=== PATIENT | male | born 1960 | race Caucasian/White ===

== ENCOUNTER 2019-11-04 08:09 | Outpatient (CLI) | payer OTHER ==
[2019-11-04 08:47] VITALS: BP 126/80
--- NOTE | 2019-11-04 08:47 | SLEEP CARE CONSULTATION ---
Information from patient questionnaire entered by Leatha Canales. I have reviewed and concur with the information entered by Leatha Canales. This document represents the service I personally performed and the decisions made by me, Delia Trinh ARNP. History of Present Illness Service Date and Time: 11/04/2019 0800 Reason for Visit: New patient Chief Complaint: reports: Unrefreshed sleep, Snoring, Excessive daytime sleepiness, Observed pauses in breathing (late ), Fatigue, Frequent awakenings at night (very restless sleep). denies: Insomnia Duration of Symptoms: 20 years Usual bedtime: [id number] Time it takes to fall asleep: 5-10 minutes Snores at night: Yes (terribly) Observed to quit breathing while asleep: Yes Sleeps alone due to snoring: Yes Number of times waking at night: several Reasons for waking at night: reports: Snoring, Bathroom, Other (I have never slept through the night, very dry throat that hurts). denies: Choking, Gasping for air Toss, Turn, or Twitch while sleeping: Yes Recalls having dreams: Yes Usually gets out of bed at: [id number] Feels refreshed in the morning: No Morning headache: No Sleepy or fatigued during the day: Yes Ever fallen asleep while driving: No (drowsy driving) Takes day naps: No Dreams during day naps: No Prior sleep studies: No Additional HPI information: Patient has snored loudly and is always tired for the last 40 years according to late and his children. He has talked for years to friends who use CPAP and recommended he get checked. He is so restless at night that he bothers his son who sleeps in the room next to his room. He has had many reasons for not addressing this such as job stresses, always being "too busy", in 2009 and raising 3 kids alone. He had a total shoulder 2012 and total knee in 2016. He has had PCPs recommend that he come in for studies and finally has come in. - Parasomnia Symptoms Ever been unable to move upon waking from sleep: No Walks in sleep: No Talks in sleep: Yes Ever acted out dreams in sleep: No Ever felt weak in the knees when startled or emotional: No Bothered by creepy, crawly, restless sensations in legs: No Problems with memory or concentration: No Subjective Initial [place] Sleepiness Scale score: 17 Past Medical History Past Medical History: reports: Anxiety (natural anxiety), Other (high cholesterol). 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 Patient is / and lives in [place]. Have you smoked in the past 12 months: No Alcohol use: Yes Alcohol amount and frequency: 2/day Caffeine use: Yes Caffeine amount and frequency: 2 cup coffee/day Family History Family history of sleep disordered breathing: Yes Family Hx Sleep Apnea: Father: Snoring, Sibling: Snoring Allergies and Home Medications Drug allergies reviewed: Yes (NKDA) Home medication list reviewed: Yes (Lipitor daily, motrin prn, concerta occasionally/prn) Review of Systems Weight loss over past 5 years: 10 Cardiovascular: denies: high blood pressure, palpitations, chest pain, irregular heart rate or pulse, leg or foot swelling, have to sleep sitting up Respiratory: denies: shortness of breath, chronic cough Gastrointestinal: reports: heartburn (rarely). denies: difficulty swallowing Urinary: denies: impotence Neurological: denies: headaches, seizure, head trauma, disorientation, gait or balance problems Psychiatric: reports: anxiety. denies: depression, mood disorder, claustrophobia Ear/Nose/Throat: reports: dry mouth/throat (from snoring; mostly in morning, uses liquid which helps), wisdom teeth removed. denies: nasal congestion, sinus problems, nose bleeds, hoarseness, injury to nose, tonsillectomy Endocrine: denies: thyroid disease, sluggishness, too hot or cold, excessive thirst, increased appetite Musculoskeletal: reports: joint pain, other (He had a total shoulder 2011 and total knee in 2016.). denies: joint swelling, muscle pain or cramping Immunologic: denies: allergies to food or environment Physical Exam Blood Pressure: 126/80 Cuff size: long Heart Rate: 65 O2 Saturation: 97 Height: 5 ft 11 in Weight: 198 lb 3.2 oz Body Mass Index: 27.6 BMI Classification: Overweight Neck circumference: 15.75 (inches) HEENT: No craniofacial malformation Nostrils: patent to airflow Turbinates: normal Septum: midline Mouth and throat: normal Soft palate: normal Hard palate: normal Uvula: normal Uvula visualization: 50% Mallampati Class II Tongue: normal in size Tonsils: small Chin and jaw: normal size and position Neck: normal w/o lymphadenopathy or thyromegaly Heart: regular rate and rhythm Lungs: clear bilaterally Impression and Plan 1. Suspected Obstructive Sleep Apnea-Hypopnea Syndrome, as suggested by a history of loud and irregular snoring, observed cessation of breath while asleep, frequent awakening during the night, unrefreshed sleep, and excessive daytime sleepiness. Narrow oropharynx and obesity are common predisposing fact ors for obstructive sleep apnea-hypopnea syndrome. I recommend proceeding to polysomnography to confirm the diagnosis and to assess severity. I informed the patient of what the sleep studies involve and after some discussion, obtained agreement to proceed. The pathophysiology of obstructive sleep apnea-hypopnea syndrome was discussed with the patient and health risks of cardiovascular and cerebrovascular disease if not treated. AAS brochure for obstructive sleep apnea-hypopnea syndrome given and reviewed. Risks of drowsy driving discussed in detail and patient advised to avoid long distance driving and to pan puller at the first sign of drowsiness. Patient agreed to plan. AAS drowsy driving brochure given. * Schedule polysomnography. * Avoid long distance driving or driving when feeling sleepy. * Avoid alcohol, sedative and muscle relaxant around bedtime. * Attempt to lose weight. * Review instructions provided by trained office staff on how to prepare for the sleep study. * Return for follow-up after sleep study completed. Time Spent with Patient (minutes): 35
== END 2019-11-04 08:10 | disposition home or self-care (01) ==
LOC: SC 08:09
PROVIDERS: ATTEND Nurse Practitioner Family
DX: G47.9 Sleep disorder, unspecified (principal); R06.89 Other abnormalities of breathing; R06.83 Snoring; E66.3 Overweight; Z68.27 Body mass index [BMI] 27.0-27.9, adult; J39.8 Other specified diseases of upper respiratory tract
CPT/HCPCS: 99204; 99212

== ENCOUNTER 2019-11-22 20:34 | Outpatient (CLI) | payer OTHER | END 2019-11-22 20:35 | disposition home or self-care (01) | LOC: SC 20:34 | PROVIDERS: ATTEND Internal Medicine Pulmonary Disease | DX: G47.33 Obstructive sleep apnea (adult) (pediatric) (principal); E66.3 Overweight; Z68.27 Body mass index [BMI] 27.0-27.9, adult | CPT/HCPCS: 95810 ==

== ENCOUNTER 2019-12-01 13:52 | Outpatient (CLI) | payer OTHER ==
--- NOTE | 2019-12-01 16:40 | SLEEP CARE CONSULTATION ---
Information from patient questionnaire entered by Tosha Capone. I have reviewed and concur with the information entered by Tosha Capone. This document represents the service I personally performed and the decisions made by me, Delia Trinh ARNP. History of Present Illness Service Date and Time: 12/01/2019 1352 Initial [place] Sleepiness Scale score: 17 (in 2020) Current [place] Sleepiness Scale score: 15 Additional HPI information: MARSHA FREGOSO returns for follow up and results of the recently performed polysomnography. His study showed that he has mild obstructive sleep apnea with an AHI of 14.6 and a phillip oxygen saturation of 86%. I explained the pathophysiology behind obstructive sleep apnea. We then spent quite a bit of time discussing different treatment options. For mild obstructive sleep apnea, surgery and oral appliance are alternatives to nasal CPAP therapy but in moderate or severe cases, nasal CPAP is the most effective and reliable treatment. Because apnea is primarily in supine position, then positional management therapy could be effective. Methods discussed such as positioning with pillows, using a T-shirt with tennis balls in the back, and shown commercial products that have a pillow format on back to prevent supine sleep. I reviewed the impact of weight changes on sleep apnea and strongly recommended losing weight. After some discussion, the patient opted to go with the nasal CPAP therapy. Nasal autoCPAP set at 4-15 cmH20 will be ordered with rationale explained. A manual titration study will be ordered if unable to find optimal pressure with office adjustments. I explained how CPAP machine works with sample devices Respironics Dreamstation and ResMed [id number] and what to expect when using the machine. Using CPAP every night in order to get used to it was emphasized. Patient advised to put CPAP mask on before getting into bed so as not to fall asleep without CPAP. To assist acclimation to CPAP use, it could also be used for a short time during day while reading or watching TV. The patient was instructed to call the CPAP supplier to discuss any mechanical problem that may occur. If the mask given is uncomfortable or is difficult to keep on through the night even with adjustment, contact the CPAP supplier as many will replace with another mask style if notified before 30 days. If snoring or perceives is not getting enough air or too much air from the machine, notify this office. AAS patient education PAP tips reviewed and given to patient. Patient counseled not drink alcohol less than 4 hours before bedtime as it can increase snoring and apnea. Patient was cautioned about risks of drowsy driving until sleepiness symptoms resolve. Sleep Study - Results Type of Sleep Study: Polysomnography Prior sleep studies: No Polysomnography/Home Sleep Study results: IMPRESSION: The quality of the study is good. The patient had normal sleep efficiency. Except for mild sleep fragmentation, the sleep architecture was normal as well. Respiratory monitoring showed mild obstructive sleep apnea-hypopnea (AHI = 14.6) associated with frequent arousals, oxyhemoglobin desaturation and mild hypoxia (phillip oxygen saturation of 86%). The respiratory events occurred almost exclusively during supine sleep (supine AHI = 17.9; non-supine = 3.30). Snore was loud in intensity. There was no significant periodic leg movement of sleep. Cardiac rhythm was normal sinus rhythm without significant arrhythmia. No abnormal behavior (parasomnia) observed during the night. Allergies and Home Medications Drug allergies reviewed: Yes (NKDA) Home medication list reviewed: Yes (no changes) Review of Systems Review of systems same as previous: Yes (no changes) Physical Exam Heart Rate: 85 O2 Saturation: 96 Height: 5 ft 11 in Weight: 195 lb 9.6 oz Body Mass Index: 27.3 BMI Classification: Overweight Impression and Plan 1. Obstructive Sleep Apnea-Hypopnea Syndrome, mild, with lowest oxygen saturation of 86%. Obviously this is the cause of the patients symptoms of unrefreshed sleep, and excessive daytime sleepiness. Positive pressure therapy could benefit his overall health as well as help him to get restful sleep. As mentioned above, the patient will be started on nasal autoCPAP therapy with pressure set at 4-15 cmH2O. A manual titration study will be completed if unable to find optimal treatment pressure with office adjustments. Compliance guidelines also reviewed. A copy of compliance guidelines will be given for reference at check out. Because the apnea is more severe supine, I instructed to avoid sleeping supine using pillow positioning until able to start CPAP use. * Nasal auto CPAP therapy, pressure at 4-15 cm H2O. * Attempt to lose weight. * Avoid alcohol consumption near bedtime. * Avoid supine sleep until using CPAP. * The patient is again cautioned about driving until sleepiness completely resolves. * Return one month after CPAP obtained. I will assess response to therapy and compliance at that time. Visit Type: In Office Time Spent with Patient (minutes): 15 Provider Statement: I spent 100% of the Face to Face Visit with the patient with greater than 50% spent counseling the patient and coordination of care.
== END 2019-12-01 13:53 | disposition home or self-care (01) ==
LOC: SC 13:52
PROVIDERS: ATTEND Nurse Practitioner Family
DX: G47.33 Obstructive sleep apnea (adult) (pediatric) (principal); E66.3 Overweight; Z68.27 Body mass index [BMI] 27.0-27.9, adult
CPT/HCPCS: 99212; 99213

== ENCOUNTER 2020-01-18 08:10 | Outpatient (CLI) | payer OTHER ==
--- NOTE | 2020-01-18 08:45 | SLEEP CARE CONSULTATION ---
Information from patient questionnaire entered by Sherin Bundy. I have reviewed and concur with the information entered by Sherin Bundy. This document represents the service I personally performed and the decisions made by , Delia Trinh ARNP. History of Present Illness Service Date and Time: 01/18/2020 0810 Previous diagnosis: Mild, Obstructive Sleep Apnea-Hypopnea Syndrome AHI: 14.6 (in 2019) Reason for follow up: first compliance Equipment type: CPAP Equipment obtained from: [employer] (getting supplies as needed) Mask style: Nasal Mask brand: Respironics Backup mask available: No (will keep mask when he gets replacement) Last cushion change: 1 month Prior sleep studies: Yes Year and Where: 2019 - [facility] Type of Sleep Study: Polysomnography HPI additional information: MARSHA FREGOSO was diagnosed to have mild, AHI 14.6, obstructive sleep apnea- hypopnea syndrome and returned today for CPAP therapy first compliance follow- up. Sleep Study - Results Prior sleep studies: No CPAP Compliance Data - Data Reviewed with Patient Average duration of nightly device use: 5.9 Compliance rate %: 70 (initial compliance period) Current pressure setting (cmH2O): 4-15 Humidity settin Heated hose settin Average residual AHI: 5.4 Average large leak: 1 min 37 sec Subjective Missed days of use due to: reports: family emergency, travel Patient concerns: reports: aerophagia, dry mouth, nose, throat (dry mouth). denies: mask discomfort, air blowing in eyes, mask leak noise, condensation in mask/hose, nasal congestion, epistaxis, other Observed to snore while using device: No (unsure) Current pressure setting perceived as: too high On therapy, patient: reports: sleeping better, awakening more refreshed, being more awake and alert during the day, more rested overall. denies: drowsiness while driving Initial [place] Sleepiness Scale score: 17 (in 2019) Current [place] Sleepiness Scale score: 11 Allergies and Home Medications Drug allergies reviewed: Yes (NKDA) Home medication list reviewed: Yes (no changes) Review of Systems Review of systems same as previous: Yes (no changes) Physical Exam Heart Rate: 67 O2 Saturation: 97 Height: 5 ft 11 in Weight: 196 lb Body Mass Index: 27.3 BMI Classification: Overweight Impression and Plan 1. Obstructive Sleep Apnea-Hypopnea Syndrome, mild, with good treatment compliance and fair apnea control, but has elevated residual AHI. On CPAP therapy, there is improved sleep quality and feels more rested overall. He has had a little aerophagia with pressure feeling too high and oral dryness. Oral dryness can be reduced by adjusting humidity setting higher or heated hose lower or by adjusting both settings. I reviewed with patient how to adjust his settings as needed. Patient advised that chronic oral dryness can affect dental health and advised to follow up with dentist. In addition, there are oral dryness products that can be used to reduce dryness such as Biotene products, Dry mouth rinse and Xylomelts. Patient to discuss best option with dentist. I will change his pressure to 8-10 cm H2O to try and have continued apnea control and less aerophagia. He is to follow up in 1-2 months for re-evaluation. He does have mask leaks when on his side and will take off mask to finish sleeping on his side. I advised him that mask leaks predominately from when patient sleeps on their side can be reduced by using a CPAP pillow. A CPAP pillow sample was shown. This and other styes can be purchased online. Patient's apnea severity and rationale for treatment to reduce apnea, improve sleep quality and reduce cardiovascular and cerebrovascular events was reviewed. I also reviewed the benefit of consistent device use of CPAP for his anxiety and overall health. * Adjust humidity setting up to increase humidity for oral dryness * Changeauto CPAP pressure to 8-10 cmH2O * Notify me if snoring with mask or feeling that the pressure is too much or too little * Attempt to lose weight through increase in activity/exercise and good eating habits * Call this office if any problems using CPAP * Return for follow up in 1-2 months, or sooner if concerns arise Counseling Topics: Weight loss health impact Visit Type: In Office Time Spent with Patient (minutes): 24 Provider Statement: I spent 100% of the Face to Face Visit with the patient with greater than 50% spent counseling the patient and coordination of care.
== END 2020-01-18 08:11 | disposition home or self-care (01) ==
LOC: SC 08:10
PROVIDERS: ATTEND Nurse Practitioner Family
DX: G47.33 Obstructive sleep apnea (adult) (pediatric) (principal); E66.3 Overweight; Z68.27 Body mass index [BMI] 27.0-27.9, adult
CPT/HCPCS: 99212

== ENCOUNTER 2020-02-22 08:12 | Outpatient (CLI) | payer OTHER ==
--- NOTE | 2020-02-22 08:44 | SLEEP CARE CONSULTATION ---
Information from patient questionnaire entered by Leatha Canales. I have reviewed and concur with the information entered by Leatha Canales. This document represents the service I personally performed and the decisions made by , Delia Trinh ARNP. History of Present Illness Service Date and Time: 02/22/2020811 Previous diagnosis: Mild, Obstructive Sleep Apnea-Hypopnea Syndrome AHI: 14.6 (IN 2019) Reason for follow up: one month (with pressure change) Equipment type: CPAP Equipment obtained from: [employer] (getting supplies as needed) Mask style: Nasal Backup mask available: Yes (other mask) Last cushion change: 3 days ago Prior sleep studies: Yes Year and Where: 2019 [facility] Type of Sleep Study: Polysomnography HPI additional information: MARSHA FREGOSO was diagnosed to have mild, AHI 14.6, obstructive sleep apnea- hypopnea syndrome and returned today for CPAP therapy one month pressure change follow-up. Sleep Study - Results Prior sleep studies: No CPAP Compliance Data - Data Reviewed with Patient Average duration of nightly device use: 5 hours 43 minutes Compliance rate %: 86.7 Current pressure setting (cmH2O): 8-10 Humidity settin Heated hose settin Average residual AHI: 5.2 Central apnea: 0.4 Obstructive apnea: 1.8 Hypopnea: 3.0 Average large leak: 1 minute 35 seconds Subjective Missed days of use due to: reports: family emergency Patient concerns: denies: aerophagia, mask discomfort, air blowing in eyes, mask leak noise, condensation in mask/hose, nasal congestion, dry mouth, nose, throat, epistaxis, other Observed to snore while using device: No Current pressure setting perceived as: comfortable On therapy, patient: reports: sleeping better, awakening more refreshed, being more awake and alert during the day, more rested overall. denies: drowsiness while driving Initial [place] Sleepiness Scale score: 17 (in 2020) Current [place] Sleepiness Scale score: 9 Allergies and Home Medications Drug allergies reviewed: Yes (NKDA) Home medication list reviewed: Yes (no changes) Review of Systems Review of systems same as previous: Yes (no changes) Physical Exam Heart Rate: 97 O2 Saturation: 76 Height: 5 ft 11 in Weight: 200 lb Body Mass Index: 27.8 BMI Classification: Overweight Impression and Plan 1. Obstructive Sleep Apnea-Hypopnea Syndrome, mild, with good treatment compliance and fair apnea control with slightly elevated residual AHI at 5.2. On CPAP therapy, the patient has better sleep quality and is more rested overall. I will increase his APAP pressure to 10-12 cm H2O to try to reduce his residual AHI. Patient would like to have a travel/battery operated machine since he usually travels a lot and has plans in March. I wrote a prescription for this and he understands that insurance may not cover this cost. He was encouraged to call if he has aerophagia or the pressure feel too much or not enough before his follow up appointment. Patient's apnea severity and rationale for treatment to reduce apnea, improve sleep quality and reduce cardiovascular and cerebrovascular events was reviewed. I also reviewed the benefit of consistent device use of CPAP for anxiety. * Change autoCPAP pressure to 10-12 cmH2O * Notify me if snoring with mask or feeling that the pressure is too much or too little * Attempt to lose weight * Call this office if any problems using CPAP * Return for follow up in 1-2 months, or sooner if concerns arise Counseling Topics: Spare mask, Weight loss health impact Visit Type: In Office Time Spent with Patient (minutes): 16 Provider Statement: I spent 100% of the Face to Face Visit with the patient with greater than 50% spent counseling the patient and coordination of care.
== END 2020-02-22 08:13 | disposition home or self-care (01) ==
LOC: SC 08:12
PROVIDERS: ATTEND Nurse Practitioner Family
DX: G47.33 Obstructive sleep apnea (adult) (pediatric) (principal); E66.3 Overweight; Z68.27 Body mass index [BMI] 27.0-27.9, adult
CPT/HCPCS: 99212; 99213

== ENCOUNTER 2020-04-25 12:26 | Outpatient (CLI) | payer OTHER ==
--- OUTSIDE RECORDS SUMMARY | 2020-04-25 12:29 | EXTERNAL MEDICAL SUMMARY RPT | Continuity of Care Document ---
:1960 Demographics Phone Unavailable Preferred Language Unknown Marital Status Unknown Scientologist Affiliation Unknown Race Unknown Ethnic Group Unknown Author Organization [place] Address [address] [place] [address] Phone Care Team Providers Name Role Phone KIRK Unavailable Unavailable Problems date description facility 2019-11-04 08:09 OVERWEIGHT [facility] 2019-11-04 08:09 SLEEP DISORDER, UNSPECIFIED [facility] 2019-11-04 08:09 OTHER SPECIFIED DISEASES OF UPPER [facility] RESPIRATORY TRACT 2019-11-04 08:09 SNORING [facility] 2019-11-04 08:09 OTHER ABNORMALITIES OF BREATHING [facility] 2019-11-04 08:09 BODY MASS INDEX (BMI) 27.0-27.9, [facility] ADULT 2019-11-22 20:34 OVERWEIGHT [facility] 2019-11-22 20:34 OBSTRUCTIVE SLEEP APNEA (ADULT) [facility] (PEDIATRIC) 2019-11-22 20:34 BODY MASS INDEX (BMI) 27.0-27.9, [facility] ADULT 2019-12-01 13:52 OVERWEIGHT [facility] 2019-12-01 13:52 OBSTRUCTIVE SLEEP APNEA (ADULT) [facility] (PEDIATRIC) 2019-12-01 13:52 BODY MASS INDEX (BMI) 27.0-27.9, [facility] ADULT 2020-01-18 08:10 OVERWEIGHT [facility] 2020-01-18 08:10 OBSTRUCTIVE SLEEP APNEA (ADULT) [facility] (PEDIATRIC) 2020-01-18 08:10 BODY MASS INDEX [BMI] 27.0-27.9, [facility] ADULT 2020-02-22 08:12 OVERWEIGHT [facility] 2020-02-22 08:12 OBSTRUCTIVE SLEEP APNEA (ADULT) [facility] (PEDIATRIC) 2020-02-22 08:12 BODY MASS INDEX [BMI] 27.0-27.9, [facility] ADULT Allergies date description facility OXYCODONE [facility] KISHORE INHIBITORS [facility] NO KNOWN ENVIRONMENTAL ALLERGIES [facility] No Known Allergies [facility] ADHESIVE [facility] EICCIRG-HLO-GHN REDUCTASE INHIBITORS [facility] NO KNOWN ALLERGIES [facility] MORPHINE [facility] TEA TREE OIL [facility] IRON [facility] FERROUS GLUCONATE [facility] EZETIMIBE [facility] SULFAMETHOXAZOLE-TRIMETHOPRIM [facility] Social History date description facility [id number]
--- NOTE | 2020-04-25 13:13 | SLEEP CARE CONSULTATION ---
Information from patient questionnaire entered by Sherin Bundy. I have reviewed and concur with the information entered by Sherin Bundy. This document represents the service I personally performed and the decisions made by , Delia Trinh ARNP. History of Present Illness Service Date and Time: 04/25/2020 1226 Previous diagnosis: Mild, Obstructive Sleep Apnea-Hypopnea Syndrome AHI: 14.6 (in 2019) Reason for follow up: other (2 month ) Equipment type: CPAP Equipment obtained from: [email or web address] (getting supplies as needed) Mask style: Nasal Backup mask available: Yes (other mask) Last cushion change: 4 days ago Prior sleep studies: Yes Year and Where: 2019 - [facility] Sleep Type of Sleep Study: Polysomnography HPI additional information: MARSHA FREGOSO was diagnosed to have mild, AHI 14.6, obstructive sleep apnea- hypopnea syndrome and returned today for CPAP therapy 2 month follow-up. CPAP Compliance Data - Data Reviewed with Patient Average duration of nightly device use: 5 hr 49 min Compliance rate %: 83.3 (60 days) Current pressure setting (cmH2O): 8-10 Humidity settin Heated hose settin Average residual AHI: 8.1 Average large leak: 1 min 39 sec Subjective Missed days of use due to: reports: family emergency Patient concerns: reports: nasal congestion, dry mouth, nose, throat (annoying, most days). denies: aerophagia, mask discomfort, air blowing in eyes, mask leak noise, condensation in mask/hose, epistaxis, other Observed to snore while using device: No Current pressure setting perceived as: comfortable On therapy, patient: reports: sleeping better, awakening more refreshed, being more awake and alert during the day, more rested overall. denies: drowsiness while driving Initial [place] Sleepiness Scale score: 17 (in 2020) Current [place] Sleepiness Scale score: 9 Allergies and Home Medications Drug allergies reviewed: Yes (NKDA) Home medication list reviewed: Yes (no changes) Review of Systems Review of systems same as previous: Yes ( no changes) Physical Exam Heart Rate: 81 O2 Saturation: 97 Height: 5 ft 11 in Weight: 198 lb Body Mass Index: 27.6 BMI Classification: Overweight Impression and Plan 1. Obstructive Sleep Apnea-Hypopnea Syndrome, mild, with good treatment compliance and fair apnea control with elevated residual AHI. On CPAP therapy, the patient has better sleep quality and is more rested overall. The patients pressure will be changed to autoCPAP 9-11 cmH20 For elevation of residual AHI. Patient advised to contact me if pressure change is uncomfortable so that it can be adjusted. Goals for apnea control discussed. He has has some nasal congestion with a nasal drip causing a cough at night. He has also been getting a dry mouth most mornings. Nasal congestion can be reduced with increasing the CPAP humidity. Oral dryness can be reduced by adjusting humidity setting higher or heated hose lower or by adjusting both settings. Verbal instructions given on how to change humidity and heated hose settings with rationale explaining why to change. Patient's apnea severity and rationale for treatment to reduce apnea, improve sleep quality and reduce cardiovascular and cerebrovascular events was reviewed. I also reviewed the benefit of consistent device use of CPAP for anxiety. * Changeauto CPAP pressure to 9-11 cmH2O * Notify me if snoring with mask or feeling that the pressure is too much or too little * Attempt to lose weight * Call this office if any problems using CPAP * Return for follow up in 1-2 months, or sooner if concerns arise Counseling Topics: Spare mask, Weight loss health impact Visit Type: In Office Time Spent with Patient (minutes): 21 Provider Statement: I spent 100% of the Face to Face Visit with the patient with greater than 50% spent counseling the patient and coordination of care.
== END 2020-04-25 12:27 | disposition home or self-care (01) ==
LOC: SC 12:26
PROVIDERS: ATTEND Nurse Practitioner Family
DX: G47.33 Obstructive sleep apnea (adult) (pediatric) (principal); E66.3 Overweight; Z68.27 Body mass index [BMI] 27.0-27.9, adult
CPT/HCPCS: 99212; 99213

== ENCOUNTER 2020-06-13 07:30 | Outpatient (CLI) | payer OTHER ==
--- NOTE | 2020-06-13 08:19 | SLEEP CARE CONSULTATION ---
Information from patient questionnaire entered by Sherin Bundy. I have reviewed and concur with the information entered by Sherin Bundy. This document represents the service I personally performed and the decisions made by , Delia Trinh ARNP. History of Present Illness Service Date and Time: 06/13/2020 0730 Previous diagnosis: Mild, Obstructive Sleep Apnea-Hypopnea Syndrome AHI: 14.6 (in 2019) Reason for follow up: other (6 week with pressure change) Equipment type: CPAP Equipment obtained from: [employer] (getting supplies as needed) Mask style: Nasal Backup mask available: Yes (old mask) Last cushion change: 1 week ago Prior sleep studies: Yes Year and Where: 2019 - [facility] Sleep Type of Sleep Study: Polysomnography HPI additional information: MARSHA FREGOSO was diagnosed to have mild, AHI 14.6, obstructive sleep apnea- hypopnea syndrome and returned today for CPAP therapy 6 week pressure change follow-up. CPAP Compliance Data - Data Reviewed with Patient Average duration of nightly device use: 4 hr 53 min Compliance rate %: 68.3 (60 days) Current pressure setting (cmH2O): 9-11 Humidity settin Heated hose settin Average residual AHI: 8.6 Average large leak: 14 sec Subjective Missed days of use due to: reports: travel, other (power outage 2 nights) Patient concerns: reports: dry mouth, nose, throat, other (seems weaker). denies: aerophagia, mask discomfort, air blowing in eyes, mask leak noise, condensation in mask/hose, nasal congestion, epistaxis Observed to snore while using device: No Current pressure setting perceived as: too low On therapy, patient: reports: sleeping better, awakening more refreshed, being more awake and alert during the day, more rested overall. denies: drowsiness while driving Initial [place] Sleepiness Scale score: 17 (in 2020) Current [place] Sleepiness Scale score: 6 Allergies and Home Medications Drug allergies reviewed: Yes (NKDA) Home medication list reviewed: Yes (no changes) Review of Systems Review of systems same as previous: Yes (no changes) Physical Exam Heart Rate: 70 O2 Saturation: 96 Height: 5 ft 11 in Weight: 202 lb Body Mass Index: 28.1 BMI Classification: Overweight Impression and Plan 1. Obstructive Sleep Apnea-Hypopnea Syndrome, mild, with fair treatment compliance and fair apnea control with an elevated residual AHI. On CPAP therapy, the patient has better sleep quality and is more rested overall. He has been having some mouth dryness but has been unable to increase the humidity. He checked with [employer] and they told him they need to come out and unlock the feature on his machine. I tried to change the humidity level on [employer] site, it should update when he turns on machine at home. We discussed increasing the pressure and he would still like to go slow since it felt so high when I changed it at the last visit. The patients pressure will be changed to autoCPAP 10-12 cmH20 for elevation of residual AHI. Patient advised to contact me if pressure change is uncomfortable so that it can be adjusted. Goals for apnea control discussed. Patient's apnea severity and rationale for treatment to reduce apnea, improve sleep quality and reduce cardiovascular and cerebrovascular events was reviewed. I also reviewed the benefit of consistent device use of CPAP for anxiety. * Change auto CPAP pressure to 10-12 cmH2O * Notify me if snoring with mask or feeling that the pressure is too much or too little * Attempt to lose weight * Call this office if any problems using CPAP * Return for follow up in 1-2 months, or sooner if concerns arise Counseling Topics: Spare mask, Weight loss health impact Visit Type: In Office Time Spent with Patient (minutes): 20 Provider Statement: I spent 100% of the Face to Face Visit with the patient with greater than 50% spent counseling the patient and coordination of care.
== END 2020-06-13 07:31 | disposition home or self-care (01) ==
LOC: SC 07:30
PROVIDERS: ATTEND Nurse Practitioner Family
DX: G47.33 Obstructive sleep apnea (adult) (pediatric) (principal); E66.3 Overweight; Z68.28 Body mass index [BMI] 28.0-28.9, adult
CPT/HCPCS: 99212; 99213

== ENCOUNTER 2020-08-15 07:59 | Outpatient (CLI) | payer OTHER ==
--- NOTE | 2020-08-15 08:36 | SLEEP CARE CONSULTATION ---
Information from patient questionnaire entered by Sherin Bundy. I have reviewed and concur with the information entered by Sherin Bundy. This document represents the service I personally performed and the decisions made by , Delia Trinh ARNP. History of Present Illness Service Date and Time: 08/15/2020 0759 Previous diagnosis: Mild, Obstructive Sleep Apnea-Hypopnea Syndrome AHI: 14.6 (in 2019) Reason for follow up: other (2 month with pressure change) Equipment type: CPAP Equipment obtained from: [employer] (getting supplies as needed) Mask style: Nasal Backup mask available: Yes (other mask) Last cushion change: 1 week Prior sleep studies: Yes Year and Where: 2019 - [facility] Sleep Type of Sleep Study: Polysomnography HPI additional information: MARSHA FREGOSO was diagnosed to have mild, AHI 14.6, obstructive sleep apnea- hypopnea syndrome and returned today for CPAP therapy two month pressure change follow-up. CPAP Compliance Data - Data Reviewed with Patient Average duration of nightly device use: 5 hr 35 min Compliance rate %: 83.3 (60 days) Current pressure setting (cmH2O): 10-12 Humidity settin Heated hose settin Average residual AHI: 10.6 Average large leak: 1 min 49 sec Subjective Missed days of use due to: reports: travel Patient concerns: reports: dry mouth, nose, throat. denies: aerophagia, mask discomfort, air blowing in eyes, mask leak noise, condensation in mask/hose, nasal congestion, epistaxis, other Observed to snore while using device: No Current pressure setting perceived as: comfortable On therapy, patient: reports: sleeping better, awakening more refreshed, being more awake and alert during the day, more rested overall. denies: drowsiness while driving Initial [place] Sleepiness Scale score: 17 (in 2019) Current [place] Sleepiness Scale score: 6 Allergies and Home Medications Home medication list reviewed: Yes (no changes) Review of Systems Review of systems same as previous: Yes (no changes) Physical Exam Heart Rate: 82 O2 Saturation: 97 Height: 5 ft 11 in Weight: 201 lb Body Mass Index: 28.0 BMI Classification: Overweight Impression and Plan 1. Obstructive Sleep Apnea-Hypopnea Syndrome, mild, with good treatment compliance and fair apnea control with elevated residual AHI. On CPAP therapy, the patient has better sleep quality and is more rested overall. He has been still having some dry mouth but it is better with last increase in humidity to 3. He states it is locked so he cannot adjust the humidity on his own. I will have the documentation coordinator see about getting this unlocked so he may increase his humidity to 4. Oral dryness can be reduced by adjusting humidity setting higher or heated hose lower or by adjusting both settings. His AHI is more elevated today. I reviewed his past notes and he had to best apnea control at 8-10 cmH2O. I will adjust it back to this setting and have him follow up in 3 months. He voiced understanding and agreement with plan of care. Patient's apnea severity and rationale for treatment to reduce apnea, improve sleep quality and reduce cardiovascular and cerebrovascular events was reviewed. He has history of anxiety. * Change auto CPAP pressure to 8-10 cmH2O * Notify me if snoring with mask or feeling that the pressure is too much or too little * Attempt to lose weight * Call this office if any problems using CPAP * Return for follow up in 3 months, or sooner if concerns arise Counseling Topics: Spare mask, Weight loss health impact Visit Type: In Office Time Spent with Patient (minutes): 15 Provider Statement: I spent 100% of the Face to Face Visit with the patient with greater than 50% spent counseling the patient and coordination of care.
== END 2020-08-15 08:00 | disposition home or self-care (01) ==
LOC: SC 07:59
PROVIDERS: ATTEND Nurse Practitioner Family
DX: G47.33 Obstructive sleep apnea (adult) (pediatric) (principal); E66.3 Overweight; Z68.28 Body mass index [BMI] 28.0-28.9, adult
CPT/HCPCS: 99212

== ENCOUNTER 2020-11-21 08:02 | Outpatient (CLI) | payer OTHER ==
--- NOTE | 2020-11-21 08:23 | SLEEP CARE CONSULTATION ---
Information from patient questionnaire entered by Sherin Bundy. I have reviewed and concur with the information entered by Sherin Bundy. This document represents the service I personally performed and the decisions made by , Delia Trinh ARNP. History of Present Illness Service Date and Time: 11/21/2020 0802 Previous diagnosis: Mild, Obstructive Sleep Apnea-Hypopnea Syndrome AHI: 14.6 (in 2019) Reason for follow up: three month Equipment type: CPAP Equipment obtained from: [employer] (getting supplies as needed) Mask style: Nasal Backup mask available: Yes (old mask) Last cushion change: 1 week Prior sleep studies: Yes Year and Where: 2019 - [facility] Sleep Type of Sleep Study: Polysomnography HPI additional information: MARSHA FREGOSO was diagnosed to have mild, AHI 14.6, obstructive sleep apnea- hypopnea syndrome and returned today for CPAP therapy three month follow-up. CPAP Compliance Data - Data Reviewed with Patient Average duration of nightly device use: 5 hr 31 min Compliance rate %: 67.8 (90 days) Current pressure setting (cmH2O): 8-10 Humidity settin Heated hose settin Average residual AHI: 7.0 Average large leak: 2 min 6 sec Subjective Missed days of use due to: reports: travel Patient concerns: reports: dry mouth, nose, throat. denies: aerophagia, mask discomfort, air blowing in eyes, mask leak noise, condensation in mask/hose, nasal congestion, epistaxis, other Observed to snore while using device: No Current pressure setting perceived as: comfortable On therapy, patient: reports: sleeping better, awakening more refreshed, being more awake and alert during the day, more rested overall. denies: drowsiness while driving Initial [place] Sleepiness Scale score: 17 (in 2019) Current [place] Sleepiness Scale score: 9 Allergies and Home Medications Home medication list reviewed: Yes (no changes) Review of Systems Review of systems same as previous: Yes (no changes) Physical Exam Heart Rate: 73 O2 Saturation: 95 Height: 5 ft 11 in Weight: 201 lb Body Mass Index: 28.0 BMI Classification: Overweight Impression and Plan 1. Obstructive Sleep Apnea-Hypopnea Syndrome, mild, with fair treatment compliance and fair apnea control with minimally elevated residual AHI. On CPAP therapy, the patient has better sleep quality and is more rested overall. Patient has to travel to [place] for work and sometimes stays overnight without his machine. This has decreased his compliance. I encouraged him to take his machine with him and to use it nightly to increase his compliance and he voiced understanding. Patient has significant improvement of his sleep apnea despite some minimal elevation. He is satisfied with current pressure setting, feels comfortable and feels he is getting good results. I will not adjust his pressure today give him some time at this current pressure because he seems to have the best apnea control. I will follow-up with him in 6 months and if it is still elevated may do a titration study at that time to further adjust pressures. Patient voiced understanding and agreement with this plan of care. Patient's apnea severity and rationale for treatment to reduce apnea, improve sleep quality and reduce cardiovascular and cerebrovascular events was reviewed. I also reviewed the benefit of consistent device use of CPAP for anxiety. Patient has been more oral dryness. His heated hose is at 4 and humidity at 3 on his machine. He was advised to decrease the heated hose to increase his humidity and he voiced understanding. He was encouraged to lose weight. * Continue auto CPAP pressure at 8-10 cmH2O * Notify me if snoring with mask or feeling that the pressure is too much or too little * Attempt to lose weight * Call this office if any problems using CPAP * Return for follow up in 6 months, or sooner if concerns arise Counseling Topics: Spare mask, Weight loss health impact Visit Type: In Office Time Spent with Patient (minutes): 12 Provider Statement: I spent 100% of the Face to Face Visit with the patient with greater than 50% spent counseling the patient and coordination of care.
== END 2020-11-21 08:03 | disposition home or self-care (01) ==
LOC: SC 08:02
PROVIDERS: ATTEND Nurse Practitioner Family
DX: G47.33 Obstructive sleep apnea (adult) (pediatric) (principal)
CPT/HCPCS: 99212

== ENCOUNTER 2021-08-13 10:09 | Emergency (ER) | payer OTHER ==
[2021-08-13 10:18] VITALS: BP 126/92
--- NOTE | 2021-08-13 11:02 | ED Physician Documentation ---
History of Present Illness - Stated complaint Stated Complaint: RT ELBOW PX - Chief complaint Chief Complaint: Ext Problem - History obtained from History obtained from: Patient - History of Present Illness Timing: How many days ago (3) Pain level max: 6 Pain level now: 0 - Additonal information Additional information: Patient is a 61-year-old male who presents to the emergency department with right elbow pain. He states that he did to yoga classes about 3 days ago. Noticed swelling to the right elbow after that time. He states that he took Motrin last night and that the symptoms have resolved by about 80%. He states he went to the [facility] today for evaluation and they sent him here for further evaluation. No fevers. No chills. No pain with range of motion. Worse with palpation. Better with Motrin. Review of Systems Constitutional: denies: Fever, Chills GI: denies: Vomiting, Diarrhea Skin: denies: Rash PD PAST MEDICAL HISTORY - Past Medical History Past Medical History: Yes Cardiovascular: High cholesterol - Present Medications Home Medications: Ambulatory Orders Medication Instructions Recorded Confirmed Atorvastatin [Lipitor] 20 mg PO DAILY 08/13/21 08/13/21 Omeprazole Magnesium 20 mg PO DAILY 08/13/21 08/13/21 predniSONE [Deltasone] 40 mg PO DAILY #10 tablet 08/13/21 - Allergies Allergies/Adverse Reactions: Allergies Allergy/AdvReac Type Severity Reaction Status Date / Time No Known Drug Allergies Allergy Verified 08/13/21 10:15 - Living Situation Living Arrangement: reports: At home - Social History Does the pt smoke?: No Does the pt have substance abuse?: No - Family History Family history: reports: Non contributory PD ED PE NORMAL - Vitals Vital signs reviewed: Yes - General General: Alert and oriented X 3, No acute distress - HEENT HEENT: Moist mucous membranes - Derm Derm: Warm and dry - Extremities Extremities: Other (Tender to palpation over the right olecranon area. There is mild swelling, approximately 2 x 2 cm. Minimal erythema. Full range of motion of the joint without any pain. Neurovascularly intact.) - Neuro Neuro: Alert and oriented X 3 - Psych Psych: Normal mood, Normal affect Results - Vitals Vitals: Vital Signs - 24 hr 08/13/21 10:16 Temperature 36.9 C Heart Rate 63 Respiratory 18 Rate Blood Pressure 126/92 H O2 Saturation 99 Oxygen O2 Source Room air PD MEDICAL DECISION MAKING - ED course Complexity details: considered differential, d/w patient ED course: 61-year-old male with what appears to be an inflammatory bursitis. We did discuss incision, drainage, needle aspiration for fluid analysis. His presentation does not appear consistent with a septic bursitis at this time. He has improved about 80% with Motrin alone. We will continue the Motrin and add steroids for a few days. If he worsens or fails to improve, he will return. He is comfortable holding the incision, drainage or needle aspiration at this kenroy e. Patient counseled regarding signs and symptoms for which I believe and urgent re-evaluation would be necessary. Patient with good understanding of and agreement to plan and is comfortable going home at this time This document was made in part using voice recognition software. While efforts are made to proofread this document, sound alike and grammatical errors may occur. Departure - Departure Disposition: 01 Home, Self Care Clinical Impression: Bursitis Qualifiers: Bursitis location: elbow Elbow bursitis location: olecranon bursitis Laterality: right Qualified Code(s): M70.21 - Olecranon bursitis, right elbow Condition: Good Instructions: ED Bursitis Elbow Olecranon Follow-Up: your,doctor in 1 week if not better [Other] Prescriptions: predniSONE [Deltasone] 40 mg PO DAILY #10 tablet Comments: Your prescriptions were sent to [facility] in [place]. Please follow-up with your doctor for further care. Return if you worsen. This normally resolves in 1 to 2 days after starting treatment. Please return if you are worsening including fevers, redness and swelling. Discharge Date/Time: 08/13/21 11:13
== END 2021-08-13 11:13 | disposition home or self-care (01) ==
LOC: ED 10:09
DX: M70.21 Olecranon bursitis, right elbow (principal)
CPT/HCPCS: 99282